=== PATIENT | female | born 1980 | race Caucasian/White ===

== ENCOUNTER 2016-08-01 12:18 | Emergency (ER) | payer BC ==
[~2016-08-01] VITALS: Ht 170.2 cm; Wt 100.8 kg
[~2016-08-01 12:18] MED LIST: AUGMENTIN875 MG PO; CITRATE OF MAG296 ML PO; GAS-X80 MG PO; MIRENA52 MG IY; TYLENOL COLD H1 EAC5 PO; ZYRTEC10 M2 PO
[2016-08-01 13:08] LABS: ADD MIUA? YES; BILIRUBIN NEGATIVE; BLOOD LARGE; COLOR YELLOW ((YELLOW)); GLUCOSE (STRIP) NEGATIVE; KETONES NEGATIVE; LEUKOCYTES NEGATIVE; NITRITE NEGATIVE; PROTEIN (STRIP) 30; SPECIFIC GRAVITY 1.013 (1.000-1.030); UROBILINOGEN 0.2 MG/DL (0.2-1.0)
[2016-08-01 13:09] LABS: HEMATOCRIT 41.6 % (36.0-46.0); MCH 28.9 PG (29.0-34.0); MCHC 32.9 G/DL (30.0-36.0); MCV 87.8 FL (83-99); MEAN PLAT.VOLUME 8.7 uM^3 (9.5-12.4); PLATELET COUNT 411 K/uL (156-360); RBC DIS.WIDTH-CV 12.5 % (11.8-14.6); RBC DIS.WIDTH-SD 40.2 % (39-53); RED BLOOD COUNT 4.74 M/uL (3.80-5.20); WHITE BLOOD COUNT 11.9 K/uL (4.1-10.2)
[2016-08-01] MEDS ORDERED: PRENATAL TABLE1 EAC3 PO (13:12)
[2016-08-01 13:18] LABS: CHLORIDE 106 mEq/L (99-109); POTASSIUM 3.8 mEq/L (3.7-5.4); SODIUM 139 mEq/L (136-147)
[2016-08-01 13:20] LABS: GLUCOSE 92 mg/dL (70-99)
[2016-08-01 13:21] LABS: ANION GAP 12 MEQ/L (2-14)
[2016-08-01 13:22] LABS: TOTAL BILIRUBIN 0.5 mg/dL (0.0-1.0)
[2016-08-01 13:23] LABS: ALKALINE PHOSPHATASE 103 IU/L (3-129)
[2016-08-01 13:24] LABS: GFR ESTIMATE (CALCULATED) > 59 mL/min/
[2016-08-01 13:25] LABS: UREA NITROGEN (BUN) 8 mg/dL (9-23)
[2016-08-01 13:32] LABS: QUANTITATIVE HCG 764.4 MIU/ML
[2016-08-01 13:51] LABS: BACTERIA RARE /HPF; EPITHELIAL CELLS RARE /HPF; MUCUS NONE SEEN /LPF; RED BLOOD CELLS TNTC /HPF (0-5)
[2016-08-01] MEDS ORDERED: ZOFRAN ODT4 MG PO (14:50)
[2016-08-01 15:25] VITALS: BP 105/78
== END 2016-08-01 15:25 | disposition home or self-care (01) ==
LOC: EME 12:18
PROVIDERS: Nurse Practitioner Family
DX: O03.9 Complete or unspecified spontaneous abortion without complication (principal); Z88.6 Allergy status to analgesic agent; Z88.5 Allergy status to narcotic agent
CPT/HCPCS: 76801; 80053; 81003; 84702; 85027; 87651 90; 99281; 99284; J2405; J7030

== ENCOUNTER → 2016-08-07 | Outpatient (CLI) | payer BC ==
[~2016-08-07] MED LIST changes: +PRENATAL TABLE1 EAC3 PO; +ZOFRAN ODT4 MG PO
== END | disposition home or self-care (01) ==
LOC: RAD 16:55
DX: Z95.828 Presence of other vascular implants and grafts (principal); M79.89 Other specified soft tissue disorders
CPT/HCPCS: 93971